=== PATIENT | male | born 1965 | race Caucasian/White ===

== ENCOUNTER → 2021-03-24 13:43 | Outpatient (BNVA) | payer OTHER, SELFPAY | PROVIDERS: Family Provider Family Medicine; Visit Provider Orthopaedic Surgery | DX: M25.519 Pain in unspecified shoulder (principal) | CPT/HCPCS: 73030 ==

== ENCOUNTER → 2022-01-19 13:54 | Outpatient (BNVA) | payer OTHER, SELFPAY | PROVIDERS: Family Provider Family Medicine; PCP Family Medicine; Referring Provider Family Medicine; Visit Provider Nurse Practitioner Family | DX: M25.531 Pain in right wrist (principal) | CPT/HCPCS: 73110 ==

== ENCOUNTER 2022-01-30 15:14 | Emergency (ER) | payer OTHER, SELFPAY ==
[2022-01-30 15:21] VITALS: BP 149/97; PULSE 98; RESP 16; TEMP 36.4; O2SAT 99; BMI 30.5
--- NOTE | 2022-01-30 15:26 | XRR_ITS ---
PROCEDURE INFORMATION: Exam: XR Right Hand Exam date and time: 01/30/2022 4:05 PM Age: 56 years old Clinical indication: Swelling; Hand; Right; Additional info: Right hand swelling TECHNIQUE: Imaging protocol: Radiologic exam of the Right hand. Views: Frontal, lateral, and oblique, 3 views. COMPARISON: No relevant prior studies available. FINDINGS: Bones/joints: No acute bony abnormality identified. No destructive bony process identified. Soft tissues: Moderate dorsal metacarpal soft tissue swelling. No ectopic gas identified. 4.3 x 1.1 mm heterotopic calcification dorsomedial to the 5th metacarpophalangeal joint. XR/XR hand RT min 3V* [id number] IMPRESSION: 1. No acute bony abnormality identified. 2. Nonspecific heterotopic calcification. Clinical correlation (e.g. penetrating injury?) is recommended. 3. Soft tissue swelling. Cellulitis? Injury?
--- NOTE | 2022-01-30 17:59 | PC.NURSE ---
pt denies injury bites or stings. reports right hand swollen for the last month. reports he was seen by his dr a few times. thought maybe it was tendititis or gout, has tried different medications with no improvements. reports he was seen at ortho where they did an xray and was given shots in his wrist with no improvement. reports pain is constant but worsens in the evening. Reports pain is generalized hand and wrist.
--- NOTE | 2022-01-30 17:59 | W.ED.EXTPRO ---
Documented by User: KAELYN Casarez 01/30/22 20:57 HPI - Extremity Problem General: Chief complaint: Extremity Injury, Upper Stated complaint: Right hand swollen Time Seen by Provider: 01/30/22 17:57 Source: patient Mode of arrival: ambulatory Limitations: no limitations History of Present Illness: Patient is a nice 56-year-old male who presents to ED today with a complaint of right wrist and hand pain and swelling. He states symptoms of been present over the past month or so. Patient has sought multiple medical evaluations by Dr. Zhong, Dr. Edwards, and [facility] orthopedics. He states he has been diagnosed with tendinitis, de Quervain's tenosynovitis, and gout. Patient states he has been on several rounds of steroids as well as colchicine and allopurinol for the gout. He has received an intra-articular injection at the orthopedic clinic. States despite all of this pain and swelling is persisting. He has not noticed any redness or overlying skin changes. He has not had any injury or trauma. No puncture injury or crushing injury. No fevers. He has no other joint swelling. No conjunctivitis/urethritis symptoms. MD Complaint: extremity pain, extremity swelling, joint swelling and joint pain Onset (ago): week(s) Pain Consistency: constant Location: right and upper extremity (hand/wrist) Radiation: none Relieving factors: nothing Exacerbating factors: nothing Associated symptoms: Reports no associated symptoms; Deny chest pain, fever(s) or rash Review of Systems Const: Denies: fever(s), chills, body aches, fatigue or malaise Card: Denies: chest pain Resp: Denies: dyspnea GI: Denies: abdominal pain Musc: Reports: extremity pain, extremity swelling, joint pain and joint swelling; Denies: neck pain, back pain, joint redness, joint warmth, joint stiffness, muscle cramps or muscle weakness Skin/Breast: Denies: rash Neuro: Denies: numbness in extremities, weakness in extremities or sensory changes [facility] ED PFSH: Social History Smoking and tobacco status: never smoked Alcohol intake: never Physical Exam Const: COMMON NORMALS: no acute distress, patient oriented x3, no limitations, alert and well nourished GENERAL APPEARANCE: cooperative HENMT: COMMON NORMALS: normocephalic and atraumatic HEAD & SCALP: normal to inspection, normocephalic and atraumatic Eye: GENERAL EYE: appearance normal, both eyes and all related structures Neck/C-Spine: COMMON NORMALS: no lymphadenopathy Resp: COMMON NORMALS: normal respiratory effort and clear to auscultation bilaterally AUSCULTATION: clear to auscultation bilaterally Cardio: COMMON NORMALS: regular rate and regular rhythm RATE: regular rate RHYTHM: regular rhythm Extremity: COMMON NORMALS: capillary refill normal GENERAL: Yes normal exam except as noted RIGHT UPPER EXTREMITY: Yes wrist and Yes hand & digits OTHER: pt has diffuse uniform swelling to R wrist/hand affecting both volar/dorsal surfaces; there is no redness or overlying skin changes; radial pulse/cap refill normal; sensory intact; patient has difficulty with wrist flexion and flexion of digits secondary to swelling; no swelling into forearm or more proximal Neuro: COMMON NORMALS: patient oriented x3, moves all extremities, no focal motor deficits and no sensory deficits noted SENSORIUM/ORIENTATION: Yes alert Skin: COMMON NORMALS: no rashes or lesions noted GENERAL SKIN EXAM: no rashes or lesions noted TRAUMA: no lacerations or abrasions Course Vital Signs: Vital signs: Vital Signs Temperature 97.6 F 01/30/22 15:21 Pulse Rate 80 01/30/22 20:17 Respiratory Rate 16 01/30/22 15:21 Blood Pressure 149/97 01/30/22 15:21 Pulse Oximetry 94 01/30/22 20:17 Oxygen Delivery Me thod 01/30/22 15:21 MDM - Extremity (Nontraumatic) Medical Decision Making Patient here with right wrist and hand swelling over the past 3 to 4 weeks that has not seemed to improve despite multiple medical evaluations and treatment therapies. I did discuss case with Dr. Waldrop given his sports medicine specialty and he was gracious enough to see patient alongside myself. He attempted arthrocentesis of the right wrist joint but no fluid was able to be collected. Intra-articular Depo-Medrol was injected. At this time I think best course of action would be to have patient be seen again at the orthopedic clinic for further evaluation and treatment. We will hold off on additional oral steroids as patient has been on several rounds of these over the past few weeks they do not seem to be making a significant difference. He will be given a small amount of pain medication to help with discomfort following procedure today. Return to ED precautions given. Lab Data Radiology Impressions Hand X-Ray 01/30/22 15:26 IMPRESSION: 1. No acute bony abnormality identified. 2. Nonspecific heterotopic calcification. Clinical correlation (e.g. penetrating injury?) is recommended. 3. Soft tissue swelling. Cellulitis? Injury? Discharge Plan Discharge Patient Disposition: Home Clinical Impression: Joint inflammation of right hand and wrist Condition: Stable Prescriptions: New hydrocodone-acetaminophen 5-325 mg tablet 1 tab PO Q6H PRN (Reason: pain) Qty: 8 0RF No Action methylprednisolone sodium succ 125 mg recon soln 125 mg IV ONCE Qty: 1 0RF colchicine 0.6 mg tablet See Rx Instructions PO BID PRN (Reason: Gout) Qty: 14 2RF Rx Instructions: Take 2 tabs initially then repeat in 1 hour if needed. Then take orally twice a day PRN; prednisone 20 mg tablet See Rx Instructions PO DAILY Qty: 16 0RF Rx Instructions: Take 2 tabs daily for 4 days, then 1 tab daily for 4 days, then 1/2 tab daily for 8 days then stop orally daily; (DME) SPICA SPLINT RIGHT HAND See Rx Instructions .Route .MEDSUPPLY Qty: 1 0RF Rx Instructions: As directed allopurinol 300 mg tablet 300 mg PO BID Qty: 180 1RF Discharge Orders: Discharge ED (Routine); Ordered 01/30/22 Ordered By: Leeanne Smith Referrals: Reginald Zhong, [Primary Care Provider] - Activity Restrictions/Additional Instructions: We attempted to aspirate fluid from your wrist to help identify a diagnosis but this was unsuccessful. Your wrist was injected with steroids. We we will provide you pain medication over the next 48 hours to help with discomfort. We would like you to follow-up with the orthopedic clinic for further evaluation. This referral was placed with case management. You may also contact the orthopedic directly to schedule an appointment. You may return to the emergency department for worsening pain or swelling, fevers, redness/warmth to the joint, or any other concerns you may have. I hope you begin to feel better soon. Coding Level of Care Code ED Piggyback Clerk for Chg Fwd Exam Comprehensive Documented by User: Juanjo Waldrop, DO 01/30/22 22:57 HPI - Extremity Problem General: Chief complaint: Extremity Injury, Upper Stated complaint: Right hand swollen Time Seen by Provider: 01/30/22 17:57 PFS ED PFSH: Social History Smoking and tobacco status: never smoked Alcohol intake: never Procedures Joint Aspiration/Injection Joint Asp./Inject. 1: Time Out Performed: No Side of body: right Joint Aspirated: wrist/hand Ultrasound Guidance: Yes Skin Prep: Chlorhexidine Local Anesthetic: lidocaine 1% Amount of anesthesia used (mL): 3 Needle Size Used: 18G Total fluid obtained (mL): 0 Medication Injected, if any: Methylprednisolone Amount of medication injected (mL): 1 Patient Tolerated Procedure: well and no complications Complications: none Course Vital Signs: Vital signs: Vital Signs Temperature 97.6 F 01/30/22 15:21 Pulse Rate 80 01/30/22 20:17 Respiratory Rate 16 01/30/22 15:21 Blood Pressure 149/97 01/30/22 15:21 Pulse Oximetry 94 01/30/22 20:17 Oxygen Delivery Me thod 01/30/22 15:21 MDM - Extremity (Nontraumatic) Medical Decision Making Patient here with right wrist and hand swelling over the past 3 to 4 weeks that has not seemed to improve despite multiple medical evaluations and treatment therapies. I did discuss case with Dr. Waldrop given his sports medicine specialty and he was gracious enough to see patient alongside myself. He attempted arthrocentesis of the right wrist joint but no fluid was able to be collected. Intra-articular Depo-Medrol was injected. At this time I think best course of action would be to have patient be seen again at the orthopedic clinic for further evaluation and treatment. We will hold off on additional oral steroids as patient has been on several rounds of these over the past few weeks they do not seem to be making a significant difference. He will be given a small amount of pain medication to help with discomfort following procedure today. Return to ED precautions given. This patient was originally seen by Mrs. Smith?CHRISTINA Espinoza.? I agree with her history, evaluation, and treatment. I have evaluated the patient as well and agree with above. Lab Data Radiology Impressions Hand X-Ray 01/30/22 15:26 IMPRESSION: 1. No acute bony abnormality identified. 2. Nonspecific heterotopic calcification. Clinical correlation (e.g. penetrating injury?) is recommended. 3. Soft tissue swelling. Cellulitis? Injury? Discharge Plan Discharge Patient Disposition: Home Clinical Impression: Joint inflammation of right hand and wrist Condition: Stable Prescriptions: New hydrocodone-acetaminophen 5-325 mg tablet 1 tab PO Q6H PRN (Reason: pain) Qty: 8 0RF No Action methylprednisolone sodium succ 125 mg recon soln 125 mg IV ONCE Qty: 1 0RF colchicine 0.6 mg tablet See Rx Instructions PO BID PRN (Reason: Gout) Qty: 14 2RF Rx Instructions: Take 2 tabs initially then repeat in 1 hour if needed. Then take orally twice a day PRN; prednisone 20 mg tablet See Rx Instructions PO DAILY Qty: 16 0RF Rx Instructions: Take 2 tabs daily for 4 days, then 1 tab daily for 4 days, then 1/2 tab daily for 8 days then stop orally daily; (DME) SPICA SPLINT RIGHT HAND See Rx Instructions .Route .MEDSUPPLY Qty: 1 0RF Rx Instructions: As directed allopurinol 300 mg tablet 300 mg PO BID Qty: 180 1RF Discharge Orders: Discharge ED (Routine); Ordered 01/30/22 Ordered By: Leeanne Noton Referrals: Reginald Zhong, DO [Primary Care Provider] - Activity Restrictions/Additional Instructions: We attempted to aspirate fluid from your wrist to help identify a diagnosis but this was unsuccessful. Your wrist was injected with steroids. We we will provide you pain medication over the next 48 hours to help with discomfort. We would like you to follow-up with the orthopedic clinic for further evaluation. This referral was placed with case management. You may also contact the orthopedic directly to schedule an appointment. You may return to the emergency department for worsening pain or swelling, fevers, redness/warmth to the joint, or any other concerns you may have. I hope you begin to feel better soon. Coding Level of Care Code ED Piggyback Clerk for Han Fwd Exam Comprehensive
--- NOTE | 2022-01-30 18:05 | PC.NURSE ---
right hand noted to be swollen and warm to touch. radial pulse palpable. decreased ROM to right hand, unable to make a fist.
--- NOTE | 2022-01-30 19:14 | PC.NURSE ---
report given to ILIA Hsu
[2022-01-30] MEDS: methylPREDNISolone (DEPO) 40 mg/mL INJ 1 mL INTRA-ARTI (19:33)
[2022-01-30 20:17] VITALS: PULSE 80; O2SAT 94
--- NOTE | 2022-01-31 15:48 | DCPLANNER ---
Addendum entered by Alis Cornejo 02/10/22 09:21: Patient had follow up appointment scheduled with ortho - patient did attend appointment. Addendum entered by Alis Cornejo 02/02/22 15:01: Patient has a follow up appointment scheduled for Friday, February 04, [address]22 at 9:[address] Muhammad at ortho. Clinic will call patient with appointment information. Original Note: manager community development had message to schedule a follow up appointment for patient with ortho. manager community development sent patients information to the front office staff at ortho. Patients information will be printed and reviewed. Clinic will call patient with appointment information.
== END 2022-01-30 20:20 | disposition home or self-care (01) ==
PROVIDERS: Emergency Provider Physician Assistant; PCP Family Medicine
DX: M19.031 Primary osteoarthritis, right wrist (principal); M19.041 Primary osteoarthritis, right hand
CPT/HCPCS: 20605; 73130; 99284; J1030

== ENCOUNTER → 2022-03-15 09:10 | Outpatient (BNVA) | payer OTHER, SELFPAY | PROVIDERS: PCP Family Medicine; Visit Provider Family Medicine | DX: E11.9 Type 2 diabetes mellitus without complications (principal); M65.4 Radial styloid tenosynovitis [de Quervain]; M10.9 Gout, unspecified | CPT/HCPCS: 80048; 84550; 85025 ==

== ENCOUNTER → 2022-04-12 14:19 | Outpatient (BNVA) | payer OTHER, SELFPAY | PROVIDERS: PCP Family Medicine; Visit Provider Family Medicine | DX: E11.9 Type 2 diabetes mellitus without complications (principal); M10.9 Gout, unspecified; R53.83 Other fatigue; M25.531 Pain in right wrist | CPT/HCPCS: 80053; 82607; 84443; 85025; 85651; 86140 ==

== ENCOUNTER → 2022-05-09 07:35 | Outpatient (BNVA) | payer OTHER, SELFPAY | PROVIDERS: PCP Family Medicine; Visit Provider Family Medicine | DX: M10.9 Gout, unspecified (principal); E11.9 Type 2 diabetes mellitus without complications; M65.4 Radial styloid tenosynovitis [de Quervain]; R53.83 Other fatigue | CPT/HCPCS: 80061; 83036; 84550 ==

== ENCOUNTER 2022-06-08 14:35 | Outpatient (CLI) | payer SELFPAY ==
--- NOTE | 2022-06-08 14:51 | XR_ITS ---
WS: [id number] Right knee, 3 views, 06/08/2022 Clinical Data: right knee pain after fall Comparison: None. Findings: No fractures or dislocations are seen. There is a small spur of the medial femoral condyle. The joint spaces are normal. There is anterior spurring of the right patella. There is a prominent tibial tube rcle.. The soft tissues are unremarkable. XR/XR knee RT 3V* [id number] Impression: 1. Spurring of the anterior right patella. 2. Small spur of the medial femoral condyle. Kellgren-Moe Classification: grade 1 (doubtful): doubtful joint space narr owing and possible osteophytic lipping
== END 2022-06-08 14:36 | disposition home or self-care (01) ==
PROVIDERS: PCP Family Medicine; Visit Provider Clinical Nurse Specialist Adult Health
DX: M25.561 Pain in right knee (principal); M76.891 Other specified enthesopathies of right lower limb, excluding foot
CPT/HCPCS: 73562

== ENCOUNTER → 2022-06-23 15:42 | Outpatient (BNVA) | payer OTHER, SELFPAY | PROVIDERS: PCP Family Medicine; Visit Provider Family Medicine | DX: M10.9 Gout, unspecified (principal); E11.9 Type 2 diabetes mellitus without complications; M25.561 Pain in right knee; M65.4 Radial styloid tenosynovitis [de Quervain]; R53.83 Other fatigue; R60.9 Edema, unspecified | CPT/HCPCS: 80053; 81000; 82310; 82728; 83540; 83735; 83970; 84100; 84550; 85025; 85651; 86140; 86160; 86162; 86200; 86235; 86255; 86376; 86431; 86704; 86803; 87340 ==

== ENCOUNTER → 2022-11-29 17:06 | Outpatient (BNVA) | payer OTHER, SELFPAY | PROVIDERS: PCP Clinical Nurse Specialist Adult Health; Visit Provider Internal Medicine | DX: M25.562 Pain in left knee (principal); G89.29 Other chronic pain; M10.9 Gout, unspecified; E11.9 Type 2 diabetes mellitus without complications; M25.50 Pain in unspecified joint | CPT/HCPCS: 80053; 82550; 82728; 82784; 83516; 83540; 84403; 84550; 85025; 85651; 86140 ==

== ENCOUNTER → 2023-03-16 14:48 | Outpatient (BNVA) | payer OTHER, SELFPAY | PROVIDERS: PCP Clinical Nurse Specialist Adult Health; Visit Provider Internal Medicine | DX: M25.50 Pain in unspecified joint (principal); M10.9 Gout, unspecified; E11.9 Type 2 diabetes mellitus without complications | CPT/HCPCS: 36415; 80053; 83520; 85025; 85651; 86140 ==

== ENCOUNTER → 2023-06-22 15:50 | Outpatient (BNVA) | payer OTHER, SELFPAY | PROVIDERS: PCP Clinical Nurse Specialist Adult Health; Visit Provider Internal Medicine | DX: M25.50 Pain in unspecified joint (principal); M10.9 Gout, unspecified; E11.9 Type 2 diabetes mellitus without complications; M06.00 Rheumatoid arthritis without rheumatoid factor, unspecified site | CPT/HCPCS: 36415; 80053; 85025; 85651; 86140; 86480 ==